=== PATIENT | female | born 1985 | race Caucasian/White ===

== ENCOUNTER 2018-04-22 15:12 | Emergency (ER) | payer MEDICAID ==
[~2018-04-22] VITALS: Ht 165.1 cm; Wt 84.4 kg
[2018-04-22 15:15] VITALS: Ht 165.1 cm; Wt 84.4 kg
[2018-04-22 17:21] VITALS: BP 135/83
== END 2018-04-22 17:21 | disposition home or self-care (01) ==
LOC: ED 15:12
DX: H92.02 Otalgia, left ear (principal); H72.92 Unspecified perforation of tympanic membrane, left ear